=== PATIENT | male | born 1955 | race Caucasian/White ===

== ENCOUNTER 2024-08-21 19:04 | Emergency (ER) | payer MEDICARE, SELFPAY ==
--- NOTE | ~2024-08-21 | XR_ITS ---
XR ankle RT min 3V Ordering provider: Marjan Schreiber NP History: . tenderness medial aspect after fall . Comparison: None. FINDINGS: BONES: Fracture of the lateral malleolus. No other fractures seen. Bony fragment near to the medial m alleolus is seen most likely due to old fracture. Calcaneus spur. JOINT SPACES: Normal. SOFT TISSUES: Normal. IMPRESSION: Fracture of the lateral malleolus. Reviewed, dictated and finalized at location A.
--- OUTSIDE RECORDS SUMMARY | 2024-08-21 19:13 | XMS_ITS | Encounter Summary ---
Author Organization [facility] Address [address] [place] [address] Phone Care Team Providers Care Studio Hand Name Role Phone Brad Phillips MD Unavailable [phone] Nicolette Stiles [facility] Primary Care Provi sonido Janice Garcia RN Unavailable Unavailable Reason for Visit * Reason Comments Medication Refill Encounter Details Date Type Department Care Team (Late st Contact Info) Description 01/07/2024 Refill [facility] - LABORATORY & ANCILLARY SERVICES - [place] [address] [place] [address] Nicolette Stiles, [facility] [address] [place] [place] [address] Medication Refill Social History Tobacco Use Types Packs/Day Years Used Date Smoking Tobacco: Former Cigarettes Q uit: 1981 Smokeless Tobacco: Never Alcohol Use Standard Drinks/Week Comments Yes 24 (1 standard drink = 0.6 oz pu re alcohol) Sex and Gender Information Value Date Recorded Sex Assigned at Not on file Legal Sex Male 1:38 PM CDT Gender Identity Not on file Sexual Orientation Not on file documented as of this encounter Plan of Treatment Not on file documented as of this encounter Goals Goal Patient Goal Type Associated Problems Recent Progress Patient-Stated? Author Response to Treatment Maximized Clinical Goals No Janice Garcia, RN Note: Evidence-based guidance: Assess patient response to treatment, including presence or absence of medication side effects, degree of blood pressure control and patient satisfaction. Assess blood pressure measurement technique (including cuff size and placement), measurement times, as well as condition and calibration of blood pressure cuff set (both at-home and in-office equipment). Assess factors that may influence response to treatment, including nonadherence to pharmacologic treatment plan, diet or activity changes and presence of pain, stress or sleep disturbance. Screen for signs and symptoms of depression; if present, refer for or complete a comprehensive assessment. Evaluate social and economic barriers that may affect adherence to treatment plan. Address pharmacologic nonadherence by simplifying dosing regimen, counseling or support by pharmacist, financial assistance, home monitoring of blood pressure, use of motivational interviewing, apps, voice or text messages; follow up by telephone, telemonitoring or home visit. Encourage behavioral adherence strategies like habit-based interventions that link medication taking with existing daily routines. Assess barriers to regular, daily physical activity; support family or support person-oriented activity changes and utilization of community activity or sports program. Address barriers to dietary changes, especially sodium restriction, with referrals to community programs like cooking classes, meal services or intensive education when available. Refer to community-based peer support program or nurse home-visiting program. Provide frequent follow-up by telephone, telemonitoring, patient-practice portal or with home visit. Review alcohol use screen; address using brief intervention beginning with risk that interferes with blood pressure control; refer for treatment when excessive alcohol use is noted. Screen for obstructive sleep apnea; prepare patient for polysomnography based on risk and presentation and use of noninvasive ventilation to relieve obstructive sleep apnea when present. Notes: Hypertension Monitored Care Plan Hypertension (Hypertension) No Janice Garcia, RN Note: Evidence-based guidance: Promote initial use of ambulatory blood pressure measurements (for 3 days) to rule out white-coat effect; identify masked hypertension and presence or absence of nocturnal dipping of blood pressure. Encourage continued use of home blood pressure monitoring and recording in blood pressure log; include symptoms of hypotension or potential medication side effects in log. Review blood pressure measurements taken inside and outside of the provider office; establish baseline and monitor trends; compare to target ranges or patient goal. Share overall cardiovascular risk with patient; encourage changes to lifestyle risk factors, including reductions in alcohol consumption, use of nicotine products, obesity or overweight, inadequate exercise, poor dietary habits and stress. Notes: Disease Progression Prevented or Minimized Care Plan Disease Progression (Hypertension) No Janice Garcia RN Note: Evidence-based guidance: Tailor lifestyle advice to individual; review progress regularly; give frequent encouragement and respond positively to incremental successes. Assess for and promote awareness of worsening disease or development of comorbidity. Prepare patient for use of pharmacologic therapy that may include diuretic, beta-duarte, beta-duarte/thiazide combination, angiotensin-converting enzyme inhibitor, renin-angiotensin duarte or calcium-channel duarte. Expect periodic adjustments to pharmacologic therapy; manage side effects. Promote DASH (dietary approaches to stop hypertension) diet, which is a diet that includes primarily plant-based foods and a moderate sodium restriction; plant- based foods include fruits, vegetables, whole grains, beans and legumes, low-fat dairy and lean meats. Consider moderate reduction in sodium intake by avoiding the addition of salt to prepared foods and limiting processed meats, canned soup, frozen meals and salty snacks. Promote a regular, daily exercise goal of 150 minutes per week of moderate exercise based on tolerance, ability and patient choice; consider referral to physical therapist, community wellness and/or activity program. Encourage limiting sedentary activity, such as recreational screen time, to no more than 2 hours per day. Promote tobacco cessation and smoke-free environment. Review sources of stress; explore current coping strategies and encourage use of mindfulness, yoga, progressive relaxation, meditation or exercise to manage stress. Notes: Response to Treatment Maximized Care Plan Resistant Hypertension (Hypertension) No Janice Garcia, RN Note: Evidence-based guidance: Assess patient response to treatment, including presence or absence of medication side effects, degree of blood pressure control and patient satisfaction. Assess blood pressure measurement technique (including cuff size and placement), measurement times, as well as condition and calibration of blood pressure cuff set (both at-home and in-office equipment). Assess factors that may influence response to treatment, including nonadherence to pharmacologic treatment plan, diet or activity changes and presence of pain, stress or sleep disturbance. Screen for signs and symptoms of depression; if present, refer for or complete a comprehensive assessment. Evaluate social and economic barriers that may affect adherence to treatment plan. Address pharmacologic nonadherence by simplifying dosing regimen, counseling or support by pharmacist, financial assistance, home monitoring of blood pressure, use of motivational interviewing, apps, voice or text messages; follow up by telephone, telemonitoring or home visit. Encourage behavioral adherence strategies like habit-based interventions that link medication taking with existing daily routines. Assess barriers to regular, daily physical activity; support family or support person-oriented activity changes and utilization of community activity or sports program. Address barriers to dietary changes, especially sodium restriction, with referrals to community programs like cooking classes, meal services or intensive education when available. Refer to community-based peer support program or nurse home-visiting program. Provide frequent follow-up by telephone, telemonitoring, patient-practice portal or with home visit. Review alcohol use screen; address using brief intervention beginning with risk that interferes with blood pressure control; refer for treatment when excessive alcohol use is noted. Screen for obstructive sleep apnea; prepare patient for polysomnography based on risk and presentation and use of noninvasive ventilation to relieve obstructive sleep apnea when present. Notes: documented as of this encounter Visit Diagnoses Diagnosis Primary hypertension Unspecified essential hypertension Type 2 diabetes mellitus without complication, without long-term current use of insulin documented in this encounter Additional Health Concerns Active Problems Noted Date Diagnosed Date Hypertension (Hypertension) 01/02/2024 Disease Progression (Hypertension) 01/02/2024 Resistant Hypertension (Hypertension) 01/02/2024 documented as of this encounter Care Teams Studio Hand Relationship Specialty Start Date End Date Nicolette Stiles PAC [address] [facility] [place] [address] PCP - General Physician Rug Setter [place] 05/15/23 Brad Phillips MD [address] [place] [address] Consulting Physician General Surgery 02/05/22 Janice Garcia RN [place] Registered Nurse 01/02/24 documented as of this encounter
--- OUTSIDE RECORDS SUMMARY | 2024-08-21 19:13 | XMS_ITS | Encounter Summary ---
Author Organization [facility] Address [address] [place] [address] Phone Care Team Providers Care Forensic Toxicologist Name Role Phone Brad Phillips MD Unavailable [phone] Nicolette Stiles [facility] Primary Care Provi sonido Janice Garcia RN Unavailable Unavailable Reason for Visit * Reason Comments Medication Refill Encounter Details Date Type Department Care Team (Late st Contact Info) Description 07/30/2023 Refill [facility] - Primary Care - [place] [address] [place] [address] Nicolette Stiles, [facility] [address] [place] [place] [address] Medication Refill Social History Tobacco [...] on file documented as of this encounter Miscellaneous Notes * Telephone Encounter - Shanna Zurita RN - 07/31/2023 4:27 PM CDT Duplicate request documented in this encounter Plan of Treatment Not on file documented as of this encounter Visit Diagnoses Diagnosis Type 2 diabetes mellitus without complication, without long-term current use of insulin Sinus congestion Other diseases of nasal cavity and sinuses documented in this encounter Care Teams Forensic Toxicologist Relationship Specialty Start Date End Date Nicolette Stiles PAC [address] [place] [address] PCP - General Physician Library Helper 05/15/23 Brad Phillips MD [address] [place] [address] Consulting Physician General Surgery 02/05/22 Janice Garcia RN [place] Registered Nurse 01/02/24 documented as of this encounter
--- OUTSIDE RECORDS SUMMARY | 2024-08-21 19:13 | XMS_ITS | Clinical Summary ---
Author Organization [facility] Address [address] [place] [address] Phone Care Team Providers Care Broadloom Weaver Name Role Phone Bebeto Alves MD Primary Care Provider [phone] Social History Tobacco Use Types Packs/Day Years Used Date Smoking Tobacco: Never Assessed Sex and Gender Information Value Date Recorded Sex Assigned at Not on file Legal Sex Male 10:32 AM CDT Gender Identity Not on file Sexual Orientation Not on file Plan of Treatment Health Maintenance Due Date Last Done Comments Diagnostic Colonoscopy 1955 Depression Screening 1967 DTaP/Tdap/Td Vaccines (1 - Tdap) [address] for [address] Colonography 2000 Colorectal Cancer Screening 2000 FIT-DNA (Cologuard) 2000 Fecal Immunochemical Testing (FIT) 2000 Fecal Occult Blood (FOBT) 2000 Flexible Sigmoidoscopy 2000 Screening Colonoscopy 2000 HCPOA Document on File 2005 Zoster (Shingles) Vaccine (1 of 2) 2005 Prostate Cancer Screening (PSA) 2010 Fall Screening 2020 Pneumococcal Vaccines (65+) (1 of 1 - PCV) 2020 Eligible for Initial Annual Medicare Wellness Exam 07/11/2021 COVID-19 Vaccine ( - 2023-2 5 season) 2024 Influenza Vaccine (Season Ended) 2025 RSV Vaccine (60+/) (1 - 1-dose 75+ series) 2030 HIB Vaccines Aged Out No longer eligi ble based on patient's age to complete this topic HPV Vaccines Aged Out No longer eligi ble based on patient's age to complete this topic Hepatitis A Vaccines Aged Out No long er eligible based on patient's age to complete this topic Hepatitis B Vaccines Aged Out No long er eligible based on patient's age to complete this topic IPV Vaccines Aged Out No longer eligi ble based on patient's age to complete this topic Meningococcal Vaccine (ACWY) Aged Out No longer eligible based on patient's age to complete this topic Rotavirus Vaccines Aged Out No longer eligible based on patient's age to complete this topic Insurance [employer] MEDICARE ADVANTAGE Care Teams Broadloom Weaver Relationship Specialty Start Date End Date Bebeto Alves MD [facility] [address] [place] [address] PCP - General Family Medicine 09/19/21
--- OUTSIDE RECORDS SUMMARY | 2024-08-21 19:13 | XMS_ITS | Encounter Summary ---
Author Organization [facility] Address [address] [place] [address] Phone Care Team Providers Care Test Engineer Nuclear Equipment Name Role Phone Brad Phillips MD Unavailable [phone] Nicolette Stiles [facility] Primary Care Provi sonido Janice Garcia RN Unavailable Unavailable Reason for Visit * Reason Comments Medication Refill Encounter Details Date Type Department Care Team (Late st Contact Info) Description 01/11/2024 Refill [facility] - LABORATORY & ANCILLARY SERVICES - [place] [address] [place] [address] Nicolette Stiles, [facility] [address] [facility] [address] Medication Refill Social History Tobacco [...] Diagnoses Diagnosis Primary hypertension Unspecified essential hypertension documented in this encounter Additional Health Concerns Active Problems Noted Date Diagnosed Date Hypertension (Hypertension) 01/02/2024 Disease Progression (Hypertension) 01/02/2024 Resistant Hypertension (Hypertension) 01/02/2024 documented as of this encounter Care Teams Test Engineer Nuclear Equipment Relationship Specialty Start Date End Date Nicolette Stiles PAC [address] [place] [address] PCP - General Physician Pv Installer Tech 05/15/23 Brad Phillips MD [address] [place] [address] Consulting Physician General Surgery 02/05/22 Janice Garcia RN [place] Registered Nurse 01/02/24 documented as of this encounter
--- OUTSIDE RECORDS SUMMARY | 2024-08-21 19:13 | XMS_ITS | Clinical Summary ---
Author Organization [facility] Address [address] [place] [address] Phone Care Team Providers Care Logistics Project Manager Name Role Phone Brad Phillips MD Unavailable [phone] Nicolette Stiles [facility] Primary Care Provi sonido Janice Garcia RN Unavailable Unavailable Allergies No known active allergies Medications ergocalciferol (VITAMIN D) 76306 UNIT Capsule Vitamin D2 1,250 mcg (50,000 unit) capsule Active meloxicam (MOBIC) 15 MG Tablet Take 1 Tablet by mouth daily. Active amLODIPine (NORVASC) 5 MG TabletIndication s:Primary hypertension Take 1 Tablet by mouth daily. 30 Tablet 1 4 Active fluticasone (FLONASE) 50 MCG/ACT SuspensionIndica tions:Sinus congestion 1-2 Sprays by Nasal route daily. Use in each nostril as directed. Use for 10 days then 1 week off. 9.9 mL 1 5 Active atorvastatin (LIPITOR) 40 MG TabletIndication s:Type 2 diabetes mellitus without complication, without long-term current use of insulin Take 1 Tablet by mouth nightly. 90 Tablet 1 5 Active Blood Glucose Monitoring Suppl DeviceIndication s:Type 2 diabetes mellitus without complication, without long-term current use of insulin Diagnosis: Diabetes type 2 Blood testing frequency: 1-2 times a day 1 Each 5 Active Glucose Blood StripIndications :Type 2 diabetes mellitus without complication, without long-term current use of insulin Diagnosis: Diabetes type 2 Blood testing frequency: 1-2 times a day 300 Strip 3 5 Active Lancets MiscIndications: Type 2 diabetes mellitus without complication, without long-term current use of insulin Use as directed 200 Lancet . 3 5 Active Isopropyl Alcohol Wipes 70 % MiscIndications: Type 2 diabetes mellitus without complication, without long-term current use of insulin Use 1 swab on the skin prior to completing blood sugar checks; Let air dry for 10-15 seconds prior to lancet use 300 Each 3 5 Active losartan (COZAAR) 25 MG TabletIndication s:Type 2 diabetes mellitus without complication, without long-term current use of insulin,Primary hypertension Take 1 Tablet by mouth daily. 90 Tablet 1 5 Active gabapentin (NEURONTIN) 800 MG Tablet Take 1 Tablet by mouth 3 times daily. 90 Tablet 1 5 Active sertraline (ZOLOFT) 100 MG TabletIndication s:Depression, unspecified depression type Take 1 Tablet by mouth daily. Appointment required for future refills 90 Tablet 1 5 Active glipiZIDE (GLUCOTROL XL) 5 MG TABLET SR 24 HRIndications:Ty pe 2 diabetes mellitus without complication, without long-term current use of insulin Take 1 Tablet by mouth daily. 90 Tablet 1 5 Active metFORMIN (GLUCOPHAGE-XR) 500 MG TABLET SR 24 HRIndications:Ty pe 2 diabetes mellitus with diabetic polyneuropathy, without long-term current use of insulin (HCC) Take 2 Tablets by mouth daily. This RX is for Metformin SR. 180 Tablet 1 5 Active ketoconazole (NIZORAL) 2 % CreamIndications :Seborrheic dermatitis Apply daily for 14 days. Application Site: Apply a thin layer to the rash on the face twice daily for 2 weeks. 15 g 5 025 Active Problems Problem Noted Date Diagnosed Date Gastroesophageal reflux disease without esophagi tis 05/15/2023 05/15/2023 Hypertensive disorder 05/15/2023 05/15/2023 Mixed hyperlipidemia 05/15/2023 05/15/2023 Morbid obesity 05/15/2023 05/15/2023 Vitamin D deficiency 05/15/2023 05/15/2023 Type 2 diabetes mellitus wit hout complication, without long-term current use of insulin 05/15/2023 Encounters Date Type Department Care Team Description 07/11/[address] [phone] Jimenez Page MD Medication Refill 07/10/[address] [phone] Nicolette Stiles PAC Medication Refill 07/10/2024 Results Follow-Up [address] [phone] Nicolette Stiles, CIELO Type 2 diabetes mellitus without complication, without long-term current use of insulin (HCC) (Primary Dx); Type 2 diabetes mellitus with diabetic polyneuropathy, without long-term current use of insulin (HCC) 07/10/2024 MyChart RX Renewal [facility] [address] [phone] Nicolette Stiles PAC Medication Renewal Request 07/10/2024 MyChart RX Renewal [address] [phone] Nicolette Stiles PAC Medication Renewal Declined 07/09/2024 9:20 AM PORT CRANE OPERATOR Lab [facility] [address] [phone] Primary hypertension; Type 2 diabetes mellitus without complication, without long-term current use of insulin (HCC); Need for hepatitis C screening test; Screening for prostate cancer Discharge Disposition: Discharged to home or Selfcare 07/09/2024 8:00 AM PORT CRANE OPERATOR Office Visit [address] [phone] Nicolette Stiles PAC Primary hypertension (Primary Dx); Type 2 diabetes mellitus with diabetic polyneuropathy, without long-term current use of insulin (HCC); Mixed hyperlipidemia; Seborrheic dermatitis; Gastroesophageal reflux disease without esophagitis; Peripheral edema; Need for hepatitis C screening test; Screening for prostate cancer; Screen for colon cancer Discharge Disposition: Discharged to home or Selfcare 07/09/2024 Travel from Last 3 Months Family History Medical History Relation Name Comments Heart Attack Brother 1 middle No Known Problems Brother 2 Colon Cancer Father Diabetes Father Cancer Mother Relation Name Status Comments Brother 1 middle Alive Brother 2 Alive Father Mother Social History Tobacco Use Types Packs/Day Years Used Date Smoking Tobacco: Former Cigarettes Q uit: 1980 Smokeless Tobacco: Never Tobacco Cessation:Counseling Given: Not Answered Alcohol Use Standard Drinks/Week Comments Yes 24 (1 standard drink = 0.6 oz pu re alcohol) Sex and Gender Information Value Date Recorded Sex Assigned at Not on file Legal Sex Male 1:38 PM CDT Gender Identity Not on file Sexual Orientation Not on file Last Filed Vital Signs Vital Sign Reading Time Taken Comments Blood Pressure 132/84 07/09/2024 8:09 AM PORT CRANE OPERATOR Pulse 111 07/09/2024 8:09 AM PORT CRANE OPERATOR Temperature 36.1 C (96.9 F) 07/09/2024 8:09 AM PORT CRANE OPERATOR Respiratory Rate 18 07/09/2024 8:09 AM PORT CRANE OPERATOR Oxygen Saturation 97% 07/09/2024 8:09 AM PORT CRANE OPERATOR Inhaled Oxygen Concentration - - Weight 87.5 kg (193 lb) 07/09/2024 8:09 AM PORT CRANE OPERATOR Height 167.6 cm (5' 6 ) 07/30/2023 2:56 PM CDT Body Mass Index 31.15 07/30/2023 2:56 PM CDT Plan of Treatment Health Maintenance Due Date Last Done Comments Diabetes: Eye Exam 1955 Diabetes: Foot Exam 1955 TdaP Immunization 1955 Pneumococcal Immunization (5 0+ years) (1 of 2 - PCV) 1974 Colonoscopy 2000 Colorectal Cancer Screening 2000 Cologuard 2005 Immunochemical Fecal Occult Blood 2005 Zoster Immunization (1 of 2) 2005 Respiratory Syncytial Virus (RSV) Immunization (Adult) (1 - Risk 60-74 years 1-dose series) 2015 AAA Screening Ultrasound 2020 SARS-COV-2 Immunization (2023- season) 2024 Diabetes: Hemoglobin A1c 01/06/2025 025, 01/02/2024 Influenza Immunization (Seas on Ended) 2025 Diabetes: Nephropathy Screening 07/09/2025 07/09/2024, 01/02/2024, 01/02/2024 Hepatitis C Virus (HCV) Screening Completed 07/09/2024 PSA Discussion Completed 07/09/2024 Hepatitis B Immunization Aged Out No longer eligible based on patient's age to complete this topic Meningococcal Immunization (ACWY) Aged Out No longer eligible b ased on patient's age to complete this topic Rotavirus Immunization Aged Out No lo nger eligible based on patient's age to complete this topic Goals Goal Patient Goal Type Associated Problems [...] Care Plan Resistant Hypertension (Hypertension) No Janice Garcia RN Note: Evidence-based guidance: Assess patient response [...] relieve obstructive sleep apnea when present. Notes: Procedures Procedure Name Priority Date/Time Associated Diagnosis Comments CBC WITH AUTO DIFFERENTIAL Routine 07/09/2024 9:07 AM PORT CRANE OPERATOR Primary hypertension PSA SCREEN Routine 07/09/2024 9:07 AM PORT CRANE OPERATOR Screening for prostate cancer HEPATITIS C ANTIBODY Routine 07/09/2024 9:07 AM PORT CRANE OPERATOR Need for hepatitis C screening test HEMOGLOBIN A1C W/ ESTIMATED GLUCOSE Routine 07/09/2024 9:07 AM PORT CRANE OPERATOR Type 2 diabetes mellitus without complication, without long-term current use of insulin (HCC) COMPLETE BLOOD COUNT (CBC) WITH DIFF Routine 07/09/2024 9:07 AM PORT CRANE OPERATOR Primary hypertension CMP (COMPREHENSIVE METABOLIC PANEL) Routine 07/09/2024 9:07 AM PORT CRANE OPERATOR Primary hypertension from Last 3 Months Results * (ABNORMAL) HEMOGLOBIN A1C W/ ESTIMATED GLUCOSE (07/09/2024 9:07 AM PORT CRANE OPERATOR) HGB-A1C 11.2(H) 4.0 - 6.0 % 07/10/2024 6:03 AM PORT CRANE OPERATOR [facility] Est Average Glucose 274.7 mg/dL 07/10/2024 6:03 AM [facility] Blood Venipuncture / Unknown 07/09/2024 9:07 AM PORT CRANE OPERATOR 07/09/2024 9:07 AM PORT CRANE OPERATOR Narrative [facility] - 07/10/2024 6:03 AM PORT CRANE OPERATOR Specimens containing greater than 5% of Hemoglobin F may result in lower than expected % HbA1c results. us Nicolette Stiles PAC CHEMISTRY ORDERABLE S Final Result [facility] [address] [place] [address], * CBC WITH AUTO DIFFERENTIAL (07/09/2024 9:07 AM PORT CRANE OPERATOR) WBC 7.50 4.00 - 12.00 10(3)/mcL 07/09/2024 11:19 AM PORT CRANE OPERATOR [facility] RBC 5.33 4.40 - 5.80 10(6)/[facility] 07/09/2024 11:19 AM [facility] HEMOGLOBIN (HGB) 16.1 13.0 - 16.5 g/dL 07/09/2024 11:19 AM [facility] HEMATOCRIT (HCT) 49.0 38.0 - 50.0 % 07/09/2024 11:19 AM [facility] MCV 91.9 82.0 - 96.0 fL 07/09/2024 11:19 AM [facility] MCH 30.2 26.0 - 32.0 pg 07/09/2024 11:19 AM [facility] MCHC 32.9 31.0 - 36.0 g/dL 07/09/2024 11:19 AM [facility] PLATELET COUNT 176 140 - 440 10(3)/[facility] 07/09/2024 11:19 AM [facility] RDW 13.3 11.8 - 15.5 % 07/09/2024 11:19 AM [facility] MPV 10.1 8.0 - 12.6 fL 07/09/2024 11:19 AM [facility] NEUTROPHILS 64.2 40.0 - 68.0 % 07/09/2024 11:19 AM [facility] LYMPHOCYTES 23.3 19.0 - 49.0 % 07/09/2024 11:19 AM [facility] MONOCYTES 8.4 3.0 - 13.0 % 07/09/2024 11:19 AM [facility] EOSINOPHILS 3.6 0.0 - 8.0 % 07/09/2024 11:19 AM [facility] BASOPHILS 0.5 0.0 - 1.0 % 07/09/2024 11:19 AM [facility] ABSOLUTE NEUTROPHILS 4.80 1.40 - 5.30 10(3)/[facility] 07/09/2024 11:19 AM [facility] ABSOLUTE LYMPHOCYTES 1.70 0.90 - 3.30 10(3)/[facility] 07/09/2024 11:19 AM PORT CRANE OPERATOR [facility] ABSOLUTE MONOCYTES 0.60 0.10 - 0.90 10(3)/mcL 07/09/2024 11:19 AM PORT CRANE OPERATOR [facility] ABSOLUTE EOSINOPHIL 0.30 0.00 - 0.50 10(3)/mcL 07/09/2024 11:19 AM PORT CRANE OPERATOR [facility] ABSOLUTE BASOPHILS 0.00 0.00 - 0.10 10(3)/mcL 07/09/2024 11:19 AM PORT CRANE OPERATOR [facility] Blood Venipuncture / Unknown 07/09/2024 9:07 AM PORT CRANE OPERATOR 07/09/2024 9:07 AM PORT CRANE OPERATOR Nicolette Stiles [facility] HEMATOLOGY ORDERABL ES Final Result [facility] [address] [place] [address], * PSA SCREEN (07/09/2024 9:07 AM PORT CRANE OPERATOR) PSA SCREEN, TOTAL 0.19 <4.00 ng/mL 07/10/2024 7:11 AM PORT CRANE OPERATOR [facility] Blood Venipuncture / Unknown 07/09/2024 9:07 AM PORT CRANE OPERATOR 07/09/2024 9:07 AM PORT CRANE OPERATOR Narrative [facility] - 07/10/2024 7:11 AM PORT CRANE OPERATOR The ALINITY Total PSA assay is a Chemiluminescent Microparticle Immunoassay (CMIA) for the quantitative determination of total PSA (both free PSA and PSA complexed to [id number]) in human serum. Total PSA values obtained with different assay methods, including Mirza PSA assays, cannot be used interchangeably. Nicolette Stiles [facility] CHEMISTRY ORDERABLE S Final Result [facility] [address] [place] [address], * HEPATITIS C ANTIBODY (07/09/2024 9:07 AM PORT CRANE OPERATOR) hepatitis C antibody 0.07 <1 S/CO 07/10/2024 6:28 AM PORT CRANE OPERATOR [facility] Comment: Signal/Cutoff ratio < 0.79 is Nondetected Signal/Cutoff ratio 0.80-0.99 is Grayzone Signal/Cutoff ratio > 0.99 is Detected Supplemental assays are recommended if signal/cutoff ratio is >/=1.00. Signal/cutoff ratio result >/= 5.00 is 97% predictive of positivity for recombinant immunoblot assay (RIBA) and will be reported to the [place] Department of Public Health as required. Blood Venipuncture / Unknown 07/09/2024 9:07 AM PORT CRANE OPERATOR 07/09/2024 9:07 AM PORT CRANE OPERATOR us Nicolette Stiles PAC CHEMISTRY ORDERABLE S Final Result [facility] [address] [place] [address], * (ABNORMAL) CMP (COMPREHENSIVE METABOLIC PANEL) (07/09/2024 9:07 AM PORT CRANE OPERATOR) SODIUM 135(L) 136 - 145 mmol/L 07/09/2024 11:43 AM [facility] POTASSIUM 5.2(H) 3.5 - 5.1 mmol/L 07/09/2024 11:43 AM [facility] CHLORIDE 96(L) 98 - 107 mmol/L 07/09/2024 11:43 AM [facility] CO2, VENOUS 26 22 - 30 mmol/L 07/09/2024 11:43 AM [facility] ANION GAP 13.0 <18.0 mmol/L 07/09/2024 11:43 AM [facility] GLUCOSE 343(H) 70 - 99 mg/dL 07/09/2024 11:43 AM [facility] BUN 28(H) 8 - 26 mg/dL 07/09/2024 11:43 AM [facility] CREATININE, BLOOD 1.36(H) 0.70 - 1.30 mg/dL 07/09/2024 11:43 AM [facility] BUN/CREATININE RATIO 21(H) 12 - 20 ratio 07/09/2024 11:43 AM [facility] TOTAL PROTEIN 7.6 6.0 - 8.0 g/dL 07/09/2024 11:43 AM [facility] ALBUMIN 4.7 3.5 - 5.0 g/dL 07/09/2024 11:43 AM [facility] A/G RATIO 1.6 1.0 - 2.2 07/09/2024 11:43 AM [facility] CALCIUM 9.9 8.7 - 10.5 mg/dL 07/09/2024 11:43 AM [facility] T BILI 1.0 0.2 - 1.2 mg/dL 07/09/2024 11:43 AM [facility] SGOT (AST) 19 <43 U/L 07/09/2024 11:43 AM [facility] SGPT (ALT) 36 <56 U/L 07/09/2024 11:43 AM [facility] ALKALINE PHOSPHATASE 84 40 - 150 U/L 07/09/2024 11:43 AM [facility] IS THE PATIENT REQUIRED TO BE FASTING? No 07/09/2024 11:43 AM [facility] GFR, ESTIMATED 56(L) >=60 07/09/2024 11:43 AM [facility] Comment: Creatinine Clearance is the preferred criteria for selecting drug dose adjustments in renally impaired patients. The GFR is provided as additional pertinent clinical information. GFR is reported in mL/min/1.73 sq m. Calculation based on the Chronic Kidney Disease Epidemiology Collaboration (CKD- EPI) equation refit without adjustment for race. GFR, EST. >60 >=60 025 11:43 AM [facility] GFR, EST. NONAFRICAN 52(L) >=60 07/09/2024 11:43 AM [facility] Blood Venipuncture / Unknown 07/09/2024 9:07 AM [facility] 07/09/2024 9:07 AM PORT CRANE OPERATOR Nicolette Powellee Go PAC CHEMISTRY ORDERABLE S Final Result [facility] [address] [place] [address], from Last 3 Months Additional Health Concerns Active Problems Noted Date Diagnosed Date Hypertension (Hypertension) 01/02/2024 Disease Progression (Hypertension) 01/02/2024 Resistant Hypertension (Hypertension) 01/02/2024 [facility] Care Teams Logistics Project Manager Relationship Specialty Start Date End Date Nicolette Stiles PAC [address] [place] [address] PCP - General Physician Health Therapist 05/15/23 Brad Phillips MD [address] [place] [address] Consulting Physician General Surgery 02/05/22 Janice Garcia, RADHA [place] Registered Nurse 01/02/24
--- OUTSIDE RECORDS SUMMARY | 2024-08-21 19:13 | XMS_ITS | Encounter Summary ---
Author Organization [facility] Address [address] [place] [address] Phone Care Team Providers Care Chemical Maker Name Role Phone Brad Phillips MD Unavailable [phone] Nicolette Stiles [facility] Primary Care Provi sonido Janice Garcia RN Unavailable Unavailable Encounter Details Date Type Department Care Team (Late st Contact Info) Description 07/10/2024 Results Follow-Up [facility] - Primary Care - [place] [address] [place] [address] Nicolette Stiles, [facility] [address] [facility] [place], [place] [id number] Type 2 diabetes mellitus without complication, without long-term current use of insulin (HCC) (Primary Dx); Type 2 diabetes mellitus with diabetic polyneuropathy, without long-term current use of insulin (HCC) Social History Tobacco Use Types Packs/Day Years Used Date Smoking Tobacco: Former Cigarettes Q uit: 1980 Smokeless Tobacco: Never Alcohol Use Standard Drinks/Week [...] Notes: Hypertension Monitored Care Plan Hypertension (Hypertension) Janice Pérez, RN Note: Evidence-based guidance: Promote initial use [...] or Minimized Care Plan Disease Progression (Hypertension) Janice Pérez, RN Note: Evidence-based guidance: Tailor lifestyle advice [...] without complication, without long-term current use of insulin- Primary Type 2 diabetes mellitus with diabetic polyneuropathy, without long-term current use of insulin (HCC) documented in this encounter Additional Health Concerns Active Problems Noted Date Diagnosed Date Hypertension (Hypertension) 01/02/2024 Disease Progression (Hypertension) 01/02/2024 Resistant Hypertension (Hypertension) 01/02/2024 documented as of this encounter Care Teams Chemical Maker Relationship Specialty Start Date End Date Nicolette Stiles PAC [address] [place] [address] PCP - General Physician Civil Preparedness Officer 05/15/23 Brad Phillips MD [address] [place] [address] Consulting Physician General Surgery 02/05/22 Janice Garcia RN [place] Registered Nurse 01/02/24 documented as of this encounter
--- OUTSIDE RECORDS SUMMARY | 2024-08-21 19:13 | XMS_ITS ---
Care Plan Created on: August 21, 2024 Sedrick Meek Sunny : 1955 Sex: Male Author Organization [facility] Address [address] [place] [address] Phone Care Team Providers Care Covering And Lining Supervisor Name Role Phone Brad Phillips MD Unavailable [phone] Nicolette Stiles [facility] Primary Care Provi sonido Janice Garcia RN Unavailable Unavailable Active Problems Problem Noted Date Diagnosed Date Gastroesophageal reflux disease without esophagi tis 05/15/2023 05/15/2023 Hypertensive disorder 05/15/2023 05/15/2023 Mixed hyperlipidemia 05/15/2023 05/15/2023 Morbid obesity 05/15/2023 05/15/2023 Vitamin D deficiency 05/15/2023 05/15/2023 Type 2 diabetes mellitus wit hout complication, without long-term current use of insulin 05/15/2023 Additional Health Concerns Active Problems Noted Date Diagnosed Date Hypertension (Hypertension) 01/02/2024 Disease Progression (Hypertension) 01/02/2024 Resistant Hypertension (Hypertension) 01/02/2024 Goals Goal Patient Goal Type Associated Problems [...] Care Plan Disease Progression (Hypertension) No Janice Garcia, RN Note: Evidence-based guidance: Tailor lifestyle advice [...] relieve obstructive sleep apnea when present. Notes: Interventions Care Plan Interventions Intervention Entry Date Outcome Facilitate Adherence to Lifestyle Change 01/02/2024 Note:Care Management Activities: t- support and encouragement provided Notes: Alleviate Barriers to Hypertension Treatment 01/02/2024 Note:Care Management Activities: t- healthy diet promoted Notes: Identify and Monitor Blood Pressure Elevation 01/02/2024 Note:Care Management Activities: t- home or ambulatory blood pressure monitoring encouraged Notes: Related Goals and Interventions Goal Associated Intervent ions Hypertension Monitored Identify and Lenora tor Blood Pressure Elevation Disease Progression Prevented or Minimiz ed Alleviate Barriers to Hypertension Treatment Response to Treatment Maximized Facilita te Adherence to Lifestyle Change
--- OUTSIDE RECORDS SUMMARY | 2024-08-21 19:13 | XMS_ITS | Encounter Summary ---
Author Organization [facility] Address [address] [place] [address] Phone Care Team Providers Care Calender Wind Up Helper Name Role Phone Brad Phillips MD Unavailable [phone] Nicolette Stiles [facility] Primary Care Provi sonido Janice Garcia RN Unavailable Unavailable Reason for Visit * Reason Comments Medication Refill Encounter Details Date Type Department Care Team (Late st Contact Info) Description 07/11/2024 Refill [facility] - [place] [address] [place] [address] Jimenez Page MD [address], [place] [id number] Medication Refill Social History Tobacco Use Types [...] Hypertension Monitored Care Plan Hypertension (Hypertension) Janice Pérez RN Note: Evidence-based guidance: Promote initial use [...] documented as of this encounter Visit Diagnoses Not on filedocumented in this encounter Additional Health Concerns Active Problems Noted Date Diagnosed Date Hypertension (Hypertension) 01/02/2024 Disease Progression (Hypertension) 01/02/2024 Resistant Hypertension (Hypertension) 01/02/2024 documented as of this encounter Care Teams Calender Wind Up Helper Relationship Specialty Start Date End Date Nicolette Stiles PAC [address] [place] [address] PCP - General Physician Court Usher 05/15/23 Brad Phillips MD [address] [place] [address] Consulting Physician General Surgery 02/05/22 Janice Garcia, RADHA [place] Registered Nurse 01/02/24 documented as of this encounter
--- OUTSIDE RECORDS SUMMARY | 2024-08-21 19:13 | XMS_ITS ---
Author Organization [facility] Address [address] [place] [address] Phone Care Team Providers Care Roll Carrier Name Role Phone Brad Phillips MD Unavailable [phone] Nicolette Stiles [facility] Primary Care Provi sonido Janice Garcia RN Unavailable Unavailable Nurse Clinic Status:Enrolled (Active) Start date:01/02/2024 Enrollment date:01/02/2024 Case Team Name Relationship Phone Janice Garcia RN Registered Nurse(Responsible Staff) Continued Care and Services Coordination
--- OUTSIDE RECORDS SUMMARY | 2024-08-21 19:13 | XMS_ITS | Encounter Summary ---
Author Organization [facility] Address [address] [place] [place] [address] Phone Care Team Providers Care Business Systems Consultant Name Role Phone Brad Phillips MD Unavailable [phone] Nicolette Stiles [facility]ED WITH [facility] Primary Care Provi sonido Janice Garcia RN Unavailable Unavailable Reason for Visit * Reason Comments Medication Refill Encounter Details Date Type Department Care Team (Late st Contact Info) Description 12/19/2023 Refill [facility] - [place] [address] [place] [address] Nicolette Stiles, [facility] [address] [place] [address] Medication Refill Social History Tobacco [...] encounter Miscellaneous Notes * Telephone Encounter - Annette Sykes RN - 12/19/2023 2:23 PM CDT Refilled today 12/19/2023 with 30 tabs and 0 refills documented in this encounter Plan of Treatment Not on file documented as of this encounter Visit Diagnoses Diagnosis Primary hypertension Unspecified essential hypertension documented in this encounter Care Teams Business Systems Consultant Relationship Specialty Start Date End Date Nicolette Stiles PAC [address] [place] [address] PCP - General Physician Tester Operator Helper 05/15/23 Brad Phillips MD [address] [place] [address] Consulting Physician General Surgery 02/05/22 Janice Garcia RN [place] Registered Nurse 01/02/24 documented as of this encounter
[2024-08-21 19:18] VITALS: BP 141/84; PULSE 100; RESP 16; TEMP 36.7; O2SAT 98
--- NOTE | 2024-08-21 19:27 | ED_ITS ---
HPI - Extremity Injury (Lower) General Chief Complaint: Extremity Injury, Lower Stated Complaint: leg injury Time Seen by Provider: 08/21/24 19:20 Source: patient Mode of arrival: ambulatory Limitations: no limitations History of Present Illness HPI Narrative: 69 yo M presents with c/o pain to R ankle. Pt fell today approx. 45 mins ago while getting out of his truck. hx of chronic back pain. Has been experiencing weakness to RLE that he plans to see his PCP for. States right leg going out from under me . Imaging of back showed degenerative changes . pt ambulatory with limp. Takes gabapentin for pain. All systems reviewed and negative except as noted above. Related Data Home Medications ?Medication ?Instructions ?Recorded ?Confirmed ?Last Taken ?Type amlodipine 5 mg tablet mg 08/21/24 Unknown History atorvastatin 40 mg tablet mg 08/21/24 Unknown History cholecalciferol (vitamin D3) 1,250 1,250 mcg PO WEEKLY 08/21/24 08/21/24 Unknown History mcg (50,000 unit) capsule (Weekly-D) fluticasone propionate 50 intranasal 08/21/24 Unknown History mcg/actuation nasal spray,suspension gabapentin 800 mg tablet mg 08/21/24 Unknown History glipizide 5 mg tablet, extended mg PO 08/21/24 Unknown History release 24 hr losartan 25 mg tablet mg 08/21/24 Unknown History meloxicam 15 mg tablet 15 mg PO DAILY 08/21/24 08/21/24 Unknown History metformin 500 mg tablet,extended mg PO 08/21/24 Unknown History release 24 hr sertraline 100 mg tablet mg 08/21/24 Unknown History Allergies Allergy/AdvReac Type Severity Reaction Status Date / Time No Known Allergies Allergy Verified 08/21/24 19:18 Review of Systems Review of Systems: CONSTITUTIONAL: Denies fever, chills, or sweats. EYES: Denies visual changes, redness, or discharge. ENT: Denies rhinorrhea, congestion, sore throat, or otalgia. CARDIOVASCULAR: Denies chest pain, palpitations, or edema. RESPIRATORY: Denies cough or dyspnea. GASTROINTESTINAL: Denies abdominal pain, nausea, vomiting, or diarrhea. GENITOURINARY: Denies dysuria or hematuria. SKIN: Denies rash or itching. MUSCULOSKELETAL: Denies back pain or myalgia. Reports pain to right ankle. NEUROLOGIC: Denies headache, numbness, or weakness. PSYCHIATRIC: Denies anxiety or depression. All other systems reviewed are negative, except as documented in HPI. PMFSH Comments At time of signature, agree with nursing past medical, surgical, social and family history. There is no relevant family history pertinent to the presenting complaint. Exam Narrative: GENERAL: This is a well-nourished, well-developed patient, in no apparent distress. HEAD: normocephalic, atraumatic. EYES: PERRL. Sclera clear/white. Vision is grossly intact. EARS: External ears normal NOSE: External nose normal NECK: Neck supple, non-tender without lymphadenopathy, masses or thyromegaly. CARDIOVASCULAR: Regular rate and rhythm without murmurs, gallops, or rubs. RESPIRATORY: Clear to auscultation. Breath sounds equal bilaterally. No wheezes, rales, or rhonchi. SKIN: warm, Dry, intact with no suspicious lesions or rash, good texture and turgor. NEURO: awake, alert, and oriented to person, place and time. There were no obvious focal neurologic abnormalities. EXTREMITIES: Tenderness to medial aspect of right ankle with mild swelling. No deformity noted. Range of motion intact. BACK: No Midline tenderness to lumbar spine or to SI joints. No deformity. Course Course Level of Care: Express Care Visit Vital Signs Vital signs: Vital Signs Temperature 36.7 C 08/21/24 19:18 Pulse Rate 100 08/21/24 19:18 Respiratory Rate 16 08/21/24 19:18 Blood Pressure 141/84 H 08/21/24 19:18 Pulse Oximetry 98 08/21/24 19:18 Oxygen Delivery Room Air 08/21/24 19:18 Temperature 36.7 C 08/21/24 19:18 Pulse Rate 100 08/21/24 19:18 Respiratory Rate 16 08/21/24 19:18 Blood Pressure 141/84 H 08/21/24 19:18 Pulse Oximetry 98 08/21/24 19:18 Oxygen Delivery Room Air 08/21/24 19:18 reviewed MDM - Extremity Injury (Lower) MDM Narrative Medical decision making narrative: x-ray of right ankle shows fracture to lateral malleolus. Discussed x-ray results with patient. Patient placed in OCL splint. Neurovascularly intact pre and postprocedure. Given crutch training. Refer to orthopedics for follow-up. Patient is visiting here from out of town. Does states that he has an orthopedic to follow up with from out of town. Patient is driving. Recommended that he have someone pick him up and he stated he was not able to. It was recommended that he does not drive while using wearing his OCL splint. Please be advised this is a medical document. It is intended for [id number] communication. It is written in medical language and may contain unfamiliar abbreviations or verbiage. Medical documents are intended to carry relevant information, facts as evident, and the clinical opinion of the practitioner at the time of the encounter. This report may have been done utilizing a voice recognition system. Attempts have been made to correct errors. However, there may be uncorrected grammatical, spelling, and recognition errors present. The file time of this note does not necessarily represent the time of service. Differential Diagnosis Differential diagnosis: Likely ankle sprain and strain and ankle fracture Imaging Data My impression: agree with radiologist Radiologist's impression: XR ankle RT min 3V Ordering provider: Marjan Schreiber NP History: . tenderness medial aspect after fall . Comparison: None. FINDINGS: BONES: Fracture of the lateral malleolus. No other fractures seen. Bony fragment near to the medial malleolus is seen most likely due to old fracture. Calcaneus spur. JOINT SPACES: Normal. SOFT TISSUES: Normal. IMPRESSION: Fracture of the lateral malleolus. Discharge Plan Discharge Clinical Impression: Ankle fracture, lateral malleolus, closed Qualifiers: Encounter type: initial encounter Laterality: right Patient Disposition: Home Condition: Stable Instructions: Ankle Fracture (ED) Additional Instructions: the x-ray of your right ankle showed a fracture to your lateral malleolus bone. Take pain medication as prescribed. This medication may make you drowsy. Do not drive while taking it. Elevate when at rest. Apply ice as needed for pain. It is recommended that you do not drive while wearing the splint. Schedule follow-up appointment with medical laboratory specialist. Patient Language: Faroese Prescriptions: New hydrocodone-acetaminophen 5-325 mg tablet 1 tablet PO Q6-8H PRN (Reason: pain) Qty: 20 0RF No Action atorvastatin 40 mg tablet sertraline 100 mg tablet glipizide 5 mg tablet extended release 24hr PO amlodipine 5 mg tablet gabapentin 800 mg tablet losartan 25 mg tablet fluticasone propionate 50 mcg/actuation spray,suspension INTRANASAL metformin 500 mg tablet extended release 24 hr PO meloxicam 15 mg tablet 15 mg PO DAILY cholecalciferol (vitamin D3) [Weekly-D] 1,250 mcg (50,000 unit) capsule 1,250 mcg PO WEEKLY Follow-up/Referrals: UNKNOWN,DOCTOR [Primary Care Provider] - Stand Alone Forms: Work/School Release IP Time of Disposition: 19:54
== END 2024-08-21 20:03 | disposition home or self-care (01) ==
PROVIDERS: Emergency Provider Nurse Practitioner Family
DX: S82.61XA Displaced fracture of lateral malleolus of right fibula, initial encounter for closed fracture (principal); V48.4XXA Person boarding or alighting a car injured in noncollision transport accident, initial encounter; I10 Essential (primary) hypertension; E11.9 Type 2 diabetes mellitus without complications; E78.00 Pure hypercholesterolemia, unspecified
CPT/HCPCS: 29515; 73610; 99204; G0463